=== PATIENT | male | born 1955 | race Two or more races ===

== ENCOUNTER 2023-09-18 07:57 | Day surgery (SDC) | payer MEDICARE, OTHER ==
[~2023-09-18] VITALS: Ht 162.6 cm; Wt 86.6 kg
[2023-09-18] VITALS (11 sets, daily range): BP systolic 141–214; BP diastolic 77–123; PULSE 85–100; RESP 16–23; O2SAT 95–97
[~2023-09-18 07:57] MED LIST: ALPR0.5T PO; BACL5TAB2 PO; LOSA-535 PO; MELO7.5T7 PO; METF-929 PO; METO25TA93 PO; ROSU10TA16 PO
[2023-09-18] MEDS ORDERED: LIDOCAINE 2%HCL (LOCAL ANESTH.) INJ 20ML MDV ONE (09:16)
[2023-09-18] MEDS ORDERED: fentaNYL CITRATE 100 MCG/2 ML VL ONE (11:32)
[2023-09-18] MEDS ORDERED: VERAPAMIL 2.5MG/ML INJ 2ML VIAL IV ONE (11:32)
[2023-09-18] MEDS ORDERED: ANGIOMAX 250 MG VIAL IV ONE (11:32)
[2023-09-18] MEDS ORDERED: MIDAZOLAM HCL 2MG/2ML 2ml VIAL (1mg/ml) ONE (11:32)
[2023-09-18] MEDS ORDERED: SODIUM CHL 0.9% 0 ML ONE (11:32)
[2023-09-18] MEDS ORDERED: HEPARIN SODIUM (PORCINE) 5000 UNITS/ML 1ML VIAL ONE (12:08)
[2023-09-18] MEDS: hydrALAZINE HCL 20 MG/ML VL ONE (13:39)
== END 2023-09-18 16:00 | disposition home or self-care (01) ==
LOC: CATH 07:57
PROVIDERS: ATTEND Internal Medicine
DX: R94.39 Abnormal result of other cardiovascular function study (principal); I25.10 Atherosclerotic heart disease of native coronary artery without angina pectoris; I10 Essential (primary) hypertension; E11.9 Type 2 diabetes mellitus without complications; E78.00 Pure hypercholesterolemia, unspecified; Z79.84 Long term (current) use of oral hypoglycemic drugs; Z79.899 Other long term (current) drug therapy; Z82.49 Family history of ischemic heart disease and other diseases of the circulatory system
CPT/HCPCS: 71045; 93458; C1894; J0360; J1644; J2250; J3010; 99152

== ENCOUNTER 2024-04-13 11:51 | Emergency (ER) | payer MEDICARE, OTHER ==
[~2024-04-13] VITALS: Ht 162.6 cm; Wt 89.2 kg
[2024-04-13 13:13] VITALS: BP 147/82; PULSE 98; RESP 16; TEMP 98.5; O2SAT 97
--- NOTE | 2024-04-13 13:17 | ED.PDOC ---
History of Present Illness HPI Comments A 69 YEAR OLD MALE PRESENTS TO THE ED WITH COMPLAINT OF FACIAL SWELLING WHILE EATING. PATIENT STATES HE WAS EATING EARLIER TODAY AND HE BEGAN TO EXPERIENCE FACIAL SWELLING AND REDNESS WHILE HE WAS EATING. PATIENT IS CONCERNED HE MAY HAVE HAD AN ALLERGIC REACTION TO SOMETHING HE ATE. PATIENT DENIES PAIN AT THIS TIME. PATIENT DENIES FEVER, CHILLS, SHORTNESS OF BREATH, CHEST PAIN, ABDOMINAL PAIN, NAUSEA, VOMITING, HEADACHE, OR OTHER COMPLAINTS. NO OTHER SYMPTOMS OR MODIFYING FACTORS AT THIS TIME. PATIENT IS ALERT, ORIENTED X 4, AND HAS STEADY GAIT. Chief Complaint: Face pain Time Seen by MD: 13:00 Reviewed Notes: Nurses Notes, Medications, Allergies Allergies: Uncoded Allergies: NONE (Allergy, Unknown, 09/15/23) Home Meds Reported Medications Baclofen (Baclofen) 5 Mg Tab, 5 MG PO BIDP PRN for FOR MUSCLE SPASM, TAB 09/15/23 Alprazolam (Xanax) 0.5 Mg Tb, 1 TAB PO HS for ANXIETY, #30 TAB 09/15/23 Rosuvastatin Calcium (Crestor) 10 Mg Tab, 1 TAB PO DAILY for HIGH CHOLESTEROL, #30 TAB 5 Refills 09/15/23 Meloxicam (Meloxicam) 7.5 Mg Tab, 2 TAB PO DAILY for ARTHRITIS, #30 TAB 2 Refills 09/15/23 Metformin HCl (Metformin Hydrochloride) 1,000 Mg Tab, 1000 MG PO BID for DIABETES, TAB 09/15/23 Metoprolol Succinate (Metoprolol Succinate Er) 25 Mg Tab, 25 MG PO DAILY for HTN for 30 Days, MG 09/15/23 Losartan Potassium (Losartan Potassium) 100 Mg Tab, 100 MG PO DAILY for HTN for 30 Days, MG 09/15/23 Information Source: Patient Mode of Arrival: Ambulatory Severity: Moderate Timing: Hours Duration: Since onset, Hours Prehospital treatment: None Medication Refill: For: Other (ALLERGIC REACTION) Past Medical History PAST MEDICAL HISTORY: DM, HTN Surgical History: CABG Family History Family History: Reviewed,noncontributory to illness Social History Smoker: Non-Smoker Alcohol: Denies ETOH Use Drugs: Denies Drug Use Lives In: Home Constitutional: denies: chills, diaphoresis, fatigue, fever, malaise, sweats, weakness, others EENTM: reports: throat swelling, others (FACIAL SWELLING WITH REDNESS); denies: blurred vision, double vision, ear bleeding, ear discharge, ear drainage, ear pain, ear ringing, eye pain, eye redness, hearing loss, mouth pain, mouth swelling, nasal discharge, nose bleeding, nose congestion, nose pain, photophobia, tearing, throat pain, voice changes Respiratory: denies: cough, hemoptysis, orthopnea, SOB at rest, shortness of breath, SOB with excertion, stridor, wheezing, others Cardiovascular: denies: chest pain, dizzy spells, diaphoresis, Dyspnea on exertion, edema, irregular heart beat, left arm pain, lightheadedness, palpitations, PND, syncope, others Gastrointestinal: denies: abdomen distended, abdominal pain, blood streaked bowels, constipated, diarrhea, dysphagia, difficulty swallowing, hematemesis, melena, nausea, poor appetite, poor fluid intake, rectal bleeding, rectal pain, vomiting, others Genitourinary: denies: burning, dysuria, flank pain, frequency, hematuria, incontinence, penile discharge, penile sore, pain, testicle pain, testicle swelling, urgency, others Neurological: denies: dizziness, fainting, headache, left sided numbness, left sided weakness, numbness, paresthesia, pre-existing deficit, right sided numbness, right sided weakness, seizure, speech problems, tingling, tremors, weakness, others Musculoskeletal: denies: back pain, gout, joint pain, joint swelling, muscle pain, muscle stiffness, neck pain, others Integumetry: reports: rash (FACE); denies: bruises, change in color, change in hair/nails, dryness, laceration, lesions, lumps, wounds, others Allergic/Immunocompromised: denies: Difficulty Healing, Frequent Infections, Hives, Itching, others Hematologic/Lymphatic: denies: anemia, blood clots, easy bleeding, easy bruising, swollen glands, others Endocrine: denies: excessive hunger, excessive sweating, excessive thirst, excessive urination, flushing, intolerance to cold, intolerance to heat, unexplained weight gain, unexplained weight loss, others Psychiatric: denies: anxiety, bipolar disorder, depression, hopeless, panic disorder, schizophrenia, sleepless, suicidal, others All Other Systems: Reviewed and Negative Physical Exam General Appearance: No Apparent Distress, Obese HEENT: PERRL/EOMI, Pharyngeal Erythema (TONSILLAR SWELLING, NO EXUDATES. ), TMs Normal, Other (ERYTHEMA FACE WITH MILD SWELLING ON CHEEKS. ) Neck: Full Range of Motion, Non-Tender, Normal, Normal Inspection Respiratory: Chest Non-Tender, Lungs Clear, No Accessory Muscle Use, No Respiratory Distress, Normal Breath Sounds Cardiovascular: No Edema, No JVD, No Murmur, No Gallop, Normal Peripheral Pulses, Regular Rate/Rhythm Breast Exam: Deferred Gastrointestinal: No Organomegaly, Non Tender, No Pulsatile Mass, Normal Bowel Sounds, Soft Genitalia: Deferred Pelvic: Deferred Rectal: Deferred Extremities: No calf tenderness, Normal capillary refill, Normal inspection, Normal range of motion, Non-tender, No pedal edema Musculoskeletal : Apperance: Normal Neurologic: Alert, comic book writer II-XII nml as Tested, No Motor Deficits, Normal Affect, Normal Mood, No Sensory Deficits Cerebellar Function: Normal Reflexes: Normal Skin: Dry, Normal Color, Rash (ERYTHEMA AND MILD SWELLING ON CHEEKS, FOREHEAD AND CHIN. ), Warm Peripheral Pulses: 2+ carotid (R), 2+ carotid (L) Lymphatic: No Adenopathy Was a procedure done? Was a procedure done?: No Differential Dx Considerations may include: ALLERGIC REACTION, TONSILLITIS, DENTAL INFECTION X-Ray, Labs, Meds, VS Vital Signs Date Time Temp Pulse Resp B/P (MAP) Pulse Ox O2 Delivery O2 Flow Rate FiO2 04/13/24 13:13 98.5 98 16 147/82 (103) 98 98.5 04/13/24 13:13 98 16 97 Room Air 04/13/24 12:57 98.5 98 16 147/82 (103) 97 Current Medications Medications (Trade) Dose Ordered Sig/Tati Route Start Time Stop Time Status Last Admin Epinephrine HCl 0.3 mg ONCE ONCE SC 04/13/24 13:15 04/13/24 13:16 DC 04/13/24 13:18 Methylprednisolone Sodium Succinate (Solu Medrol) 125 mg ONCE ONCE IM 04/13/24 13:15 04/13/24 13:16 DC 04/13/24 13:18 X-Ray, Labs, Meds, VS Comment EXTERNAL NOTES: NONE LABS ORDERED: NONE REVIEWED AND INTERPRETED RESULTS: NONE IMAGING ORDERED: NONE INDEPENDENT HISTORIANS: NONE TREATMENTS ORDERED: EPINEPHRINE 0.3 MG IM, SOLU-MEDROL 125 MG IM. PT STATES HE FEELS BETTER AND FACIAL REDNESS AND SWELLING DECREASING. PATIENT'S CASE AND RESULTS HAVE BEEN DISCUSSED WITH THE ED ATTENDING PHYSICIAN AND THEY AGREE WITH MY PLAN OF CARE. I HAVE INSTRUCTED THEM TO FOLLOW UP WITH THEIR PCP IN 1-2 DAYS. THE PATIENT FULLY UNDERSTANDS AND IS AWARE THEY NEED TO FOLLOW UP WITH THEIR PCP FOR FURTHER EVALUATION IF THEIR SYMPTOMS PERSIST. Time of 1ST Reevaluation: 14:00 Reevaluation 1ST: Improved Patient Education/Counseling: Diagnosis, Treatment, Need For Follow Up Family Education/Counseling: Diagnosis, Treatment, Need For Follow Up Medical Screening: No EMC Exist At This Time Departure 1 Departure Time of Disposition: 14:00 Impression: Primary Impression: Allergic reaction Qualified Codes: T78.40XA - Allergy, unspecified, initial encounter Disposition: HOME / SELF CARE / HOMELESS Condition: Stable Additional Instructions: FOLLOW-UP WITH PCP IN 1 TO 2 DAYS. TAKE MEDICATIONS PRESCRIBED. RETURN TO ED FOR ANY NEW OR WORSENING SYMPTOMS. e-Prescriptions Methylprednisolone (Medrol Dosepak) 4 Mg Ambrosio 4 MG PO UD, #21 TAB UAD Prov: KIKO ESPINOZA 04/13/24 Discharged With: Self Critical Care Note Critical Care Time?: No Stability Stability form required: No I personally scribed for KIKO ESPINOZA ([email or web address]) on 04/13/24 at 13:17. Electronically submitted by Nehemiah Malcolm ([email or web address]). KIKO ESPINOZA Apr 13, 2024 13:17
[2024-04-13] MEDS: EPINEPHrine HCL 1 MG/1 ML AMP SC ONE (13:18)
[2024-04-13] MEDS: methylPREDNISolone SOD SUCC 125 MG/2 ML VL IM ONE (13:18)
[2024-04-13] MEDS ORDERED: METH4PAK PO (13:50)
== END 2024-04-13 14:00 | disposition home or self-care (01) ==
LOC: ER 11:51
DX: T78.49XA Other allergy, initial encounter (principal); I10 Essential (primary) hypertension; E11.9 Type 2 diabetes mellitus without complications; Z95.1 Presence of aortocoronary bypass graft; Z79.1 Long term (current) use of non-steroidal anti-inflammatories (NSAID); Z79.84 Long term (current) use of oral hypoglycemic drugs; Z79.899 Other long term (current) drug therapy; X58.XXXA Exposure to other specified factors, initial encounter
CPT/HCPCS: 96372; 99284; J0171; J2919